=== PATIENT | male | born 1985 | race Caucasian/White ===

== ENCOUNTER 2017-03-22 13:48 | Emergency (ER) | payer OTHER ==
[~2017-03-22] VITALS: Ht 167.6 cm; Wt 104.5 kg
[2017-03-22] VITALS (9 sets, daily range): BP systolic 129–158; BP diastolic 69–103; PULSE 85–104; RESP 14–21; O2SAT 94–98
[2017-03-22] MEDS ORDERED: LISI40TA PO (14:58)
[2017-03-22] MEDS ORDERED: LABE200T PO (14:58)
[2017-03-22] MEDS ORDERED: AMLO10TA3 PO (14:58)
[2017-03-22] MEDS ORDERED: Ondansetron 2 mg/mL 2 mL Inj IVPUSH ONE (15:15)
[2017-03-22] MEDS ORDERED: 0.9% Sodium Chloride 1,000 ML IV ONE (15:15)
[2017-03-22 15:26] LABS: Magnesium 1.8 mg/dL (1.6-2.6)
[2017-03-22 15:27] LABS: BASOPHILS % (AUTO) 0.3 % (0-3); EOSINOPHILS % (AUTO) 1.6 % (0-5); MONOCYTES % (AUTO) 6.1 % (4-12); Mean Corpuscular Hemoglobin 32.7 pg (27.0-35.0); Mean Corpuscular Volume 94.9 fL (81-100); NEUTROPHILS % (AUTO) 42.3 % (40-74); Platelet Count 160 bil/L (150-400)
[2017-03-22 15:37] LABS: TROPONIN T < 0.010 ug/L (0.0-0.011)
--- NOTE | 2017-03-22 15:39 | DRSVH ---
PROCEDURE: CT BRAIN WITHOUT CONTRAST ([id number]) INDICATIONS: 32-year-old male with altered mental status and fall. TECHNIQUE: Noncontrast 4.5 mm thick angled axial sections acquired from the foramen magnum to the vertex, with c oronal reformats. COMPARISON: None. FINDINGS: Image quality: Excellent. CSF spaces: Basal cisterns are patent. No extra-axial fluid collections. Ventricles are normal in size and shape. Brain: No midline shift. On axial image 18 and coronal image 18, 1.3 x 1.0 x 1.0 cm hyperdense intra -axial lesion is noted in just superior to the right lateral ventricle, measuring 50.6 Hounsfield uni ts in density. No associated mass effects. Peacock-white matter interface is normal. Skull and face: Calvarium and visualized facial bones are intact, without suspicious lesions. Sinuses: Visualized sinuses and mastoids are clear. IMPRESSION: 1.3 x 1.0 x 1.0 cm hemorrhagic lesion just superior to the right lateral ventricle body, without associated mass effects. When clinically feasible, consider pre- and post contrast brain MRI to assess for underlying mass lesion or vascular malformation, given its unusual location for typical posttraumatic bleed. Findings and recommendations were discussed with Dr. Troncoso at 1535 hrs. on March 22, 2017. Dictated by: Yeison Olivares M.D. on 03/22/2017 at 15:28 Approved by: Yeison Olivares M.D. on 03/22/2017 at 15:37
--- NOTE | 2017-03-22 15:39 | DRSVH ---
PROCEDURE: X-RAY CHEST, TWO VIEWS ([id number]) INDICATIONS: CHEST PAIN TECHNIQUE: 2 views of the chest were acquired. COMPARISON: [facility], , CHEST 1VW (PORTABLE), 03/11/2010, 23:52. FINDINGS: Surgical changes and devices: None. Lungs and pleura: No pleural effusions or pneumothorax. Lungs are clear. Mediastinum: Mediastinal contours are normal. Heart size is normal. Bones and chest wall: No suspicious bony abnormalities. Widening of the right acromioclavicular evans nt is similar to the prior study. Soft tissues appear unremarkable. Clothing artifact within the ri ght axillary region appears to be present. IMPRESSION: Stable chest. No acute cardiopulmonary process is evident. Dictated by: Brian Hooker M.D. on 03/22/2017 at 14:38 Approved by: Brian Hooker M.D. on 03/22/2017 at 14:38
--- NOTE | 2017-03-22 16:09 | ED.REPORT ---
HPI-Trauma Multiple Date of Service Mar 22, 2017 ED Provider: Pan Troncoso MD Pt is a 32 year old male with a hx of IL, HTN, and intracranial hemorrhage ( last June) presenting to the ED via EMS after a syncopal episode in a setting of alcohol intoxication. He felt lightheaded prior to the syncopal episode. Though he is relatively young he has an extensive medical history notable for IL, prior intracranial hemorrhage, HTN and he is known to be noncompliant with his medications. He further states that he "had a bleeding aneurysm" that he was supposed to get surgery for but never followed up. He states that he was out of his HTN medication for a week and just started taking it again and thinks that he may have taken too much. Pt takes Amlodipine, Labetalol and Lisinopril. Pt denies hitting his head. Pt states that he was supposed to have surgery after his stroke but he did not follow up. He states that he is not on any blood thinners. Nursing Notes Stated Complaint: SYNCOPE Chief Complaint: Neuro Symptoms/ Deficits Nursing Notes Reviewed: Yes Allergies: Coded Allergies: No Known Allergies (Unverified , 03/22/17) Scheduled Amlodipine (Amlodipine) 10 Mg Tablet 10 MG PO DAILY Labetalol (Labetalol) 200 Mg Tablet 200 MG PO BID Lisinopril (Lisinopril) 40 Mg Tablet 20 MG PO BID General Time Seen by Provider: 15:45 Chief Complaint Loss of consciousness Hx Obtained From: Patient, EMS Arrived By: Ambulance Onset Occurred: Just prior to arrival Symptom Duration: Since onset Progression Since Onset: Resolved Severity: Current: No pain currently Severity: Maximum: No pain Recent Healthcare: No recent doctor visit, No recent hospitalization Similar Sx Previous: No Past Medical History Past Medical History IL, HTN, and CVA (last June) Past Surgical History denies Smoking History Unknown if Ever Smoker Ambulatory Status Independent Review of Systems Unable to Obtain ROS Intoxicated Physical Exam Initial Vital Signs Vital Signs (First) Date Time Temp Pulse Resp B/P Pulse Ox O2 Delivery O2 Flow Rate FiO2 03/22/17 13:48 36.8 101 21 144/89 95 Room Air Initial VS: Reviewed ENT: Mucous membranes moist, Conjunctiva normal, No scleral icterus Extremities: Vascular intact, Neuro intact, No swelling, No tenderness Skin: Warm, Dry, No cyanosis Psychiatric: Mood/affect normal, Behavior normal, Normal thought content General/Constitutional: Awake, Alert Smells of EtOH Head / Eyes: Atraumatic, Normocephalic, PERRL, EOMI Neck: Atraumatic, Supple Respiratory / Chest: Atraumatic, Breath sounds NL, Breath sounds = bilat, No respiratory distress Cardiovascular: Heart rate NL, Regular rhythm, Heart sounds NL, No gallop, No murmurs, No rubs, Cap refill not delayed Abdomen: Atraumatic, Soft, Non-tender Back: Atraumatic, Inspection NL Neurologic: Oriented X3, Speech NL, No motor deficits, No sensory deficits, CN II - XII intact, Cerebellar NL, Memory NL Thorough neurological exam normal. No pronator drift. Normal finger to nose testing. Interpretation & Diagnostics ANGIOGRAPHY CT: IMPRESSION: 1. 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 Subtle associated hemorrhage cannot be excluded although lesion is grossly unchanged since the CT from earlier today. Recommend an MRI with and without contrast and MRA when patient is able. 2. Findings and recommendations discussed with Dr. Troncoso via telephone ( [id number]) at 17:45 on 03/22/2017. Dictated by: Levon Martinez M.D. on 03/22/2017 at 18:30 Lab Results Interpretation Result Diagram: 03/22/17 1352 03/22/17 1352 Test 03/22/17 13:52 03/22/17 17:00 White Blood Count 6.1th/mm3 (3.8-10.1) Red Blood Count 4.89mil/mm3 (4.40-5.80) Hemoglobin 16.0g/dL (13.8-17.2) Hematocrit 46.4% (41.0-50.0) Mean Corpuscular Volume 94.9fL (81-100) Mean Corpuscular Hemoglobin 32.7pg (27.0-35.0) Mean Corpuscular Hemoglobin Concent 34.5% (32.0-37.0) Red Cell Distribution Width 13.1% (12.3-15.4) Platelet Count 160bil/L (150-400) Neutrophils (%) (Auto) 42.3% (40-74) Lymphocytes (%) (Auto) 49.4% (14-46) Monocytes (%) (Auto) 6.1% (4-12) Eosinophils (%) (Auto) 1.6% (0-5) Basophils (%) (Auto) 0.3% (0-3) Hold Purple Top Tube Received (Received) Prothrombin Time 10.1sec (8.1-12.5) Prothromb Time International Ratio 0.95ratio Activated Partial Thromboplast Time 25.8sec (22.8-33.0) Hold Blue Top Tube Received (Received) Sodium Level 141mEq/L (134-144) Potassium Level 3.7mEq/L (3.5-5.2) Chloride Level 100mEq/L (97-108) Carbon Dioxide Level 23mmol/L (18-29) Blood Urea Nitrogen 9mg/dL (6-20) Creatinine 0.83mg/dL (0.76-1.27) Estimat Glomerular Filtration Rate 113mL/min (>59) Glucose Level 145mg/dL (60-99) Calcium Level 8.4mg/dL (8.5-10.1) Magnesium Level 1.8mg/dL (1.6-2.6) Total Bilirubin 0.4mg/dL (0.0-1.2) Aspartate Amino Transf (AST/SGOT) 105U/L (0-50) Alanine Aminotransferase (ALT/SGPT) 88U/L (0-44) Alkaline Phosphatase 71U/L (25-150) Troponin T < 0.010ug/L (0.0-0.011) Total Protein 7.0g/dL (6.4-8.4) Albumin 4.2g/dL (3.4-5.0) Hold [place] Top Tube Received (Received) Alcohols 358mg/dL (0-10) Urine Opiates Screen Negative Urine Methadone Screen Negative Urine Barbiturates Screen Negative Urine Amphetamines Screen Negative Urine Benzodiazepines Screen Negative Urine Cocaine Metabolite Screen Negative Urine Cannabinoids Screen Negative ECG Interpretation ECG Interpretation: Borderline ST elevation anteroseptal leads. Most consistent with J point elevation. Rate of 99. Time: 14:31 Interpreted by: ED physician X-Ray Chest Interpretation Chest Xray Interpretation: IMPRESSION: Stable chest. No acute cardiopulmonary process is evident. Dictated by: Brian Hooker M.D. on 03/22/2017 at 14:38 View: AP & lat Interpretation / Wet Read by: Interpret - Radiologist CT Head Interpretation IMPRESSION: 1.3 x 1.0 x 1.0 cm hemorrhagic lesion just superior to the right lateral ventricle body, without associated mass effects. When clinically feasible, consider pre- and post contrast brain MRI to assess for underlying mass lesion or vascular malformation, given its unusual location for typical posttraumatic bleed. Findings and recommendations were discussed with Dr. Troncoso at 1535 hrs. on March 22, 2017. Dictated by: Yeison Olivares M.D. on 03/22/2017 at 15:28 Study: Head CT no contrast Interpretation / Wet Read by: Interpret - Radiologist Re-Eval/Medical Decision Med Decision/Clinical Course In summary, the patient is a 32-year-old male who presents to the emergency department complaining of lightheadedness and syncopal event in the setting of alcohol intoxication. He has extensive past medical history and states that he had a spontaneous intracranial hemorrhage in the past "secondary to an aneurysm " but that he never had surgery and never followed up for any further treatment. He states that when he experienced today feels similar to when he had his "bleeding aneurysm". Upon arrival in the emergency department the patient is quite hypertensive though otherwise hemodynamically stable. He is intoxicated though he is answering questions appropriately and has no lateralizing neurologic findings. Breathalyzer 0.297. Pt given Zofran and IV fluids. EKG shows Borderline ST elevation anteroseptal leads. Most consistent with J point elevation. Rate of 99. Chest x ray: Stable chest. No acute cardiopulmonary process is evident. Head CT shows 1.3 x 1.0 x 1.0 cm hemorrhagic lesion just superior to the right lateral ventricle body, without associated mass effects. When clinically feasible, consider pre- and post contrast brain MRI to assess for underlying mass lesion or vascular malformation, given its unusual location for typical posttraumatic bleed. Angiography CT shows stable hyperdense right frontal lobe white matter mass with draining vein most consistent with a developmental venous anomaly possibly with associated cavernoma. Subtle associated hemorrhage cannot be excluded although lesion is grossly unchanged since the CT from earlier today. Recommend an MRI with and without contrast and MRA when patient is able. Given the patient's significant hypertension in the setting of intracranial hemorrhage he was started on a nicardipine infusion with a goal systolic blood pressure of 120. The patient was closely observed from a neurologic perspective and demonstrated no evidence of evolving neurologic deficits. Examination was discussed several times with neurosurgery at [facility]. They initially felt that the patient did not necessarily require transfer and requested CT angiogram of the head in order to determine the source of his bleeding. In obtaining the study it appears that his bleeding was most likely associated with a venous anomaly. After obtaining the study I further discussed the patient with neurosurgery at [facility] who felt that the patient would benefit from transfer and additional advanced imaging as well as possible intervention. It was felt that the patient was adequately stable to travel by ALS ambulance. All appropriate EMTALA paperwork was completed and the patient was transferred in stable condition. Re-Evaluation/Progress : Time of Eval: 15:45 Patient Status: Condition improved Re-Evaluation/Progress Note: Discussed transfer to [facility]. Pt understands and agrees. Consultation #1: Call Returned at: 16:05 Note: [facility]: They will call back with an accepting doctor. Consultation #2: Call Returned at: 16:47 Note: [facility]: Get a CT angiogram. Consultation #3: Consulted With: Neurosurgery Call Returned at: 18:00 Note: Dr. Kishan Saldivar at [facility] Neurosurgery. Send the pt ALS to [facility] on Nicardipine drip. Counseled Regarding: Diagnosis, Lab results, Need for transfer Discharge & Departure Impression: Primary Impression: Intracranial hemorrhage Additional Impressions: Alcohol intoxication Complication of substance-induced condition: uncomplicated Qualified Code: F10.120 - Alcohol abuse with intoxication, uncomplicated Cavernous hemangioma of brain Syncope Syncope type: unspecified Qualified Code: R55 - Syncope and collapse Hypertensive emergency Non-compliance Disposition: Transfer, Acute Care Facility ([facility]) Receiving Hospital: [facility] Transfer Accepted: Yes Transfer Accepted at: 18:00 Transfer Reason: Higher level of care Spoke with: Specialty physician Patient Status: Stable Patient Informed: Yes Discharge Condition All VS Reviewed: Yes Condition: Improved Referrals: Eleonora Peña DO (PCP) Crit Care Except Billable Proc Time Spent: 135-164 minutes Services Performed: Patient management by me, Time spent at bedside, Reviewing test results, Reviewing imaging, Discussing patient care, Documentation in record, Time with fam/surrogate Critical Care Notes: Titration of vasoactive medications, multiple discussions with [facility] transfer center and neurosurgery Scribe Attestation Portions of this note were transcribed by Jeannette Eric. I, Dr. Troncoso personally performed the history, physical exam and medical decision-making; I reviewed and confirmed the accuracy of the information in the transcribed note. Signed by: Jeffrey Boggs, 03/22/2017. copies to: Eleonora Peña Beck O MD Mar 22, 2017 16:09 JEANNETTE ERIC Mar 22, 2017 16:16
[2017-03-22] MEDS ORDERED: NiCARdipine 25 mg/250 mL D5W IV SCH ×2 (16:20)
[2017-03-22 16:28] LABS: INR 0.95 ratio
--- NOTE | 2017-03-22 18:37 | DRSVH ---
PROCEDURE: CT ANGIOGRAPHY OF THE BRAIN WITH AND WITHOUT CONTRAST ([id number]) INDICATIONS: ich, assess for aneurism or AVM TECHNIQUE: Precontrast 4.5 mm thick angled axial sections acquired from the foramen magnum to the vertex. Afte r the administration of intravenous contrast, 1 mm thick sections acquired through the [place] of [place] is. Postcontrast 4.5 mm thick sections then re-acquired from the foramen magnum to the vertex. 3-di mensional [id number] (MIP) and/or volume rendering reformats were acquired of the c entral intracranial vasculature. For radiation dose reduction, the following was used: automated ex posure control, adjustment of mA and/or kV according to patient size. COMPARISON: None. FINDINGS: Image quality: Excellent. Anterior circulation: Intracranial internal carotid arteries are normal in size and flow. The flow within the paired anterior cerebral arteries is normal and symmetric. The flow within the middle cer ebral arteries is normal and symmetric. The anterior communicating artery is seen. No aneurysms are seen. The again noted is a 1.2 x 0.8 cm hyperdense lesion in the deep white matter of the right par acentral frontal lobe with a prominent draining vein extending into the peripheral right lateral vent ricle most consistent with a developmental venous anomaly with possible associated cavernoma. Posterior circulation: Visualized portions of the vertebral arteries demonstrate normal caliber, and join to form a normal appearing basilar artery. Flow within the posterior cerebral arteries is norm al and symmetric. No aneurysms are seen. CSF spaces: Ventricles are normal in size and shape. Basal cisterns are patent. No extra-axial flu id collections. Brain: No midline shift. No intracranial bleeds or masses. Peacock-white matter interface appears int act. Skull and face: Calvarium and facial bones appear intact, without suspicious lesions. Sinuses: Visualized sinuses and mastoids are clear. IMPRESSION: 1. Stable hyperdense right frontal lobe white matter mass with draining vein most consistent with a d evelopmental venous anomaly possibly with associated cavernoma. Subtle associated hemorrhage cannot b e excluded although lesion is grossly unchanged since the CT from earlier today. Recommend an MRI wit h and without contrast and MRA when patient is able. 2. Findings and recommendations discussed with Dr. Troncoso via telephone ([id number]) at 17:45 on 017. Dictated by: Levon Martinez M.D. on 03/22/2017 at 18:30 Approved by: Levon Martinez M.D. on 03/22/2017 at 18:35
== END 2017-03-22 19:33 | disposition short-term general hospital (02) ==
LOC: SED 13:48 → EDBD 13:48 → SED 19:33
DX: I61.9 Nontraumatic intracerebral hemorrhage, unspecified (principal); F10.120 Alcohol abuse with intoxication, uncomplicated; D18.02 Hemangioma of intracranial structures; I16.1 Hypertensive emergency; R55 Syncope and collapse; Z91.14 Patient's other noncompliance with medication regimen; I25.2 Old myocardial infarction; Z86.73 Personal history of transient ischemic attack (TIA), and cerebral infarction without residual deficits
CPT/HCPCS: 36415; 70450; 70496; 71020; 80053; 83735; 84484; 85025; 85610; 85730; 93005; 96361; 96365; 96366; 99291; 99292; G0480; J7030; Q9967